=== PATIENT | male | born 1975 | race Caucasian/White ===

== ENCOUNTER → 2020-01-23 14:58 | Outpatient (CLI) | payer OTHER, SELFPAY ==
--- NOTE | 2020-01-23 15:05 | US_ITS ---
PROCEDURE: US THYROID CLINICAL INDICATION: ABN THYROID BLOOD TEST,GLOBUS SENSATION COMPARISON: No exams were available for comparison FINDINGS: The right lobe is 4.8 x 1.7 x 1.9 cm. Left lobe is 4.7 x 1.7 x 1.8 cm. The isthmus is 3 mm. There is heterogeneous echogenicity bilaterally. There are areas of questionable nodularity but no suspicious dominant nodules evident. There is a 6 x 3 mm slightly hypoechoic nodule in the upper pole on the left. IMPRESSION: Mildly prominent thyroid gland. No suspicious dominant nodules are evident. There is a 6 mm hypoechoic nodule in the left which is nonspecific. Dictated by: Robert Ochoa MD 01/23/2020 18:16 Robert Ochoa MD in [place] 01/23/2020 18:16
== END ==
PROVIDERS: PCP Family Medicine; Visit Provider Family Medicine
DX: R09.89 Other specified symptoms and signs involving the circulatory and respiratory systems (principal); R79.89 Other specified abnormal findings of blood chemistry
CPT/HCPCS: 76536

== ENCOUNTER → 2021-01-01 16:23 | Outpatient (CLI) | payer OTHER, SELFPAY | PROVIDERS: Visit Provider Internal Medicine Gastroenterology | DX: Z01.812 Encounter for preprocedural laboratory examination (principal); Z11.52 Encounter for screening for COVID-19; Z12.11 Encounter for screening for malignant neoplasm of colon | CPT/HCPCS: C9803; U0003; U0005 ==

== ENCOUNTER 2021-01-03 08:30 | Day surgery (SDC) | payer OTHER, SELFPAY ==
[2020-12-27 15:08] VITALS: BMI 30.5
[2021-01-03] VITALS (7 sets, daily range): BP systolic 84–143; BP diastolic 53–87; PULSE 59–70; RESP 16–18; TEMP 36.1–36.4; O2SAT 94–100
--- NOTE | 2021-01-03 10:00 | HMH.PROC ---
[facility] Procedure Note Procedure Note:: Colonoscopy Procedure Report: Colonoscopy with monopolar ablation/coagulation of internal hemorrhoids Endoscopist: Ramon Coronel II, MD Referring physician: Johnson Becerra MD Date of Procedure: January 03, 2021 Equipment: Olympus 190 variable stiffness pediatric colonoscope Sedation: MAC sedation Indication: Mr. Zamorano is a 46-year-old gentleman who is here for diagnostic colonoscopy. He did have bright red blood on the tissue and in the toilet bowl previously which resolved. He states that this occurred a while back. He reports no abdominal pain or rectal pain. He reports no change in his bowel habits, weight loss or family history of colon cancer. His referral states that he had a positive Cologuard but the patient does not remember having this done. Procedure: Prior to the procedure, a history and physical exam was performed, and patient's medications and allergies were reviewed. The risks, benefits and alternatives of the sedation and procedure were discussed with the patient. All questions were answered and informed consent was obtained. The patient was brought to the procedure room. Patient identification and proposed procedure were verified by the physician and the nurse. The patient was placed in a left lateral decubitus position and the scope was passed under direct vision. Throughout the procedure, the patient's blood pressure, pulse, and oxygen saturations were monitored continuously. The colonoscopy was accomplished without difficulty. The patient tolerated the procedure well. Findings: On digital rectal examination there was normal rectal tone. There were no external hemorrhoids. The prostate was mildly firm but symmetric without nodules. The colonoscope was introduced through the anal canal to the rectum and advanced to the cecum. The ileocecal valve and appendiceal orifice were identified. The scope was advanced a short distance into the ileum which appeared grossly normal. The scope was then withdrawn into the colon. The cecum, ascending and transverse colon and mucosa were grossly normal. There were mildly scattered diverticuli throughout the descending and sigmoid colon (LEFT colon). The rectum itself was normal. Upon retroflexion within the rectum there were grade 1-2 internal hemorrhoids. These hemorrhoids were ablated/coagulated using monopolar ablation to destruction. The preparation was excellent throughout with Ingalls Preparation Score of 9. The cecal time was 12 minutes. Impression: 1. Mild left-sided diverticulosis 2. Grade 1-2 internal hemorrhoids status post monopolar ablation/coagulation Plan: I would encourage bulk fiber supplementation on a long-term daily maintenance basis. The patient will not require surveillance colonoscopy again for 10 years by ACS guidelines.
--- NOTE | 2021-01-03 12:07 | HMH.ANESCL ---
[facility] Anesthesia Checklist - Patient Identification Patient Identification: Arm Band - Structural Data Admitted From: Home Planned Operative Procedure/s: Colonoscopy Consent for Planned Operative Procedure(s) Verified: Yes Verified Documents: Surgical Consent - NPO Status Verified Time NPO: 04:00 - Chart Verification Results Verified: None - Cardiovascular Assessment Heart Sounds: S1 & S2 Pulse Rhythm: Regular - Airway Assessment C-Spine Mobility Assessed: Yes TMJ Mobility Assessed: Yes Dentition: Good Dentition - Neurological Assessment Level of Consciousness: Awake, Alert, Appropriate - Anesthesia Plan Anesthesia Risk discussed: Yes ASA Class: III Anesthesia Type: General [facility] History I have reviewed the patient's past medical history: Yes Medical History: Denies:: Cancer, Diabetes Mellitus Type 1, Diabetes Mellitus Type 2, Internal Pacemaker, MRSA, Seizures *Have you ever received a pneumonia vaccine?: No *Have you received a flu vaccine this season?: No Anesthesia experience/problems:: none Other Surgeries: Yes: No Previous Surgery. No: Pacemaker Amputation: No Fractures: No - *Social History Last grade of school completed: Some college Smoking Status: Unknown if ever smoked Tobacco Type: smokeless tobacco # Packs/Day (cigarettes): 1 Alcohol Intake: never Substance Use Type: denies use *Occupational Status:: employed Housing: house Household Members: spouse, family *Travel in the last 8 weeks: None Family Hx:: No significant family history
== END 2021-01-03 10:55 | disposition home or self-care (01) ==
LOC: OUTP 08:32
PROVIDERS: PCP Family Medicine; Visit Provider Internal Medicine Gastroenterology
PROC: 0DJD8ZZ Inspection of Lower Intestinal Tract, Via Natural or Artificial Opening Endoscopic (ICD-10-PCS; CPT 45378; principal; 2021-01-03 09:30)
DX: K57.32 Diverticulitis of large intestine without perforation or abscess without bleeding (principal); K64.0 First degree hemorrhoids
CPT/HCPCS: 45378; 46930

== ENCOUNTER 2021-02-27 13:19 | Emergency (ER) | payer OTHER, SELFPAY ==
[2021-02-27 14:45] VITALS: BP 113/80; PULSE 78; RESP 19; TEMP 37; O2SAT 97; BMI 29.8
--- NOTE | 2021-02-27 14:58 | HMH.EDUTC ---
[facility] Disposition Clinical Impression: Rectal bleeding Disposition: Home, Self-Care Condition on Discharge: Good Instructions: DI for Rectal Bleeding Additional Instructions: Drink plenty of fluids. Eat a high fiber diet. Go to the ER for worsening bleeding. Follow up with your regular doctor about your symptoms. You still need more of a work up to try to see what's causing you to bleed. Your primary care physician would be the one to order these test or refer you. Follow up with the GI specialist that did your colonoscopy. GO TO THE ER FOR ANY WORSENING SYMPTOMS Referrals: Johnson Becerra [Primary Care Provider] - Time of Disposition: 16:46 Medical Decision Making - Medical Records Medical records reviewed: No: I reviewed the patient's medical records. - Clark Inquiry Pt receiving controlled substance: No Vital Signs: 02/27/21 14:45 02/27/21 15:37 02/27/21 16:25 Temperature 98.6 F 98.6 F Temperature Source Oral Pulse Rate 75 Pulse Rate [Left] 78 Respiratory Rate 19 18 Blood Pressure 117/85 Blood Pressure [Orthostatic Lying] 142/73 H Blood Pressure [Orthostatic Sitting] 118/76 Blood Pressure [Orthostatic Standing] 121/79 Blood Pressure [Right Arm] 113/80 Blood Pressure Mean [Right Arm] 91 02 Sat by Pulse Oximetry 97 - Lab Data Lab results reviewed: Yes: I reviewed the patient's lab results. Lab Results 02/27/21 15:33: WBC 7.4, RBC 5.02, Hgb 14.4, Hct 42.9, MCV 85.4, MCH 28.7, MCHC 33.6, RDW 13.7, Plt Count 260, MPV 8.3, Neut % (Auto) 56.4, Lymph % (Auto) 30.9, [place] % (Auto) 7.1, Eos % (Auto) 4.5, Baso % (Auto) 1.1, Neut # (Auto) 4.2, Lymph # (Auto) 2.3, [place] # (Auto) 0.5, Eos # (Auto) 0.3, Baso # (Auto) 0.1 02/27/21 15:33: PT 11.0, INR 0.97, APTT 29.1 02/27/21 15:33: Sodium 141, Potassium 3.7, Chloride 101, Carbon Dioxide 32 H, Anion Gap 11.7, BUN 12, Creatinine 0.70, Estimated Creat Clear 182, Estimated GFR 120, Est GFR ( Amer) 146, Glucose 116 H, Calcium 9.8, Total Bilirubin 0.6, AST 39, ALT 39, Alkaline Phosphatase 88, Total Protein 7.5, Albumin 4.6, Globulin 2.9, Albumin/Globulin Ratio 1.6 Result diagrams: 02/27/21 15:33 02/27/21 15:33 [facility] HPI - General Stated complaint: blood in stool Time Seen by Provider: 02/27/21 14:58 Mode of Arrival: Ambulatory Source of Information: Patient Limitations: No Limitations Description of Symptoms (Recalled from Triage Doc. by RN): PT STATES HE HAS HAD BRIGHT RED BLOOD IN HIS STOOL FOR 24 HRS. PT HAS A HX OF HEMMORHOIDS. HEENT Symptoms (Recalled from RN notes): No Resp Symptoms (Recalled from RN notes): No Skin Symptoms (Recalled from RN notes): No MS Symptoms (Recalled from RN notes): No Functional Status (Recalled from RN notes): NA - History of Present Illness Provider Complaint: He states that for the past several days he has been having bright red bleeding with bowel movements. He has had hemorrhoids in the past, but they were cauterized when he had a colonoscopy done. - Related Data Home Medications Medication Instructions Recorded Confirmed Febuxostat [Uloric 40mg Tab] 40 mg PO DAILY 12/27/20 01/03/21 Allergies Allergy/AdvReac Type Severity Reaction Status Date / Time Penicillins Allergy Verified 01/03/21 08:43 - Worker's Comp Is this a Worker's Comp case?: No [facility] History - Hepatitis A Screen Drug use history?: No High risk sexual behaviors?: No History of sexually transmitted infection?: No Currently employed?: No Childcare worker?: No Do you have indoor plumbing?: Yes Do you have electricity?: Yes Attestation statement:: This patient has been screened for Hepatitis A risk factors. I have reviewed the patient's past medical history: Yes Medical History: Denies:: Cancer, Diabetes Mellitus Type 1, Diabetes Mellitus Type 2, Internal Pacemaker, MRSA, Seizures Other Surgeries: Yes: No Previous Surgery. No: Pacemaker Amputation: No Fractures: No - Social History
[2021-02-27 15:37] VITALS: BP 118/76; BP 121/79; BP 142/73
[2021-02-27 15:51] LABS: Basophils # 0.1 K/mm3 (0-0.2); Basophils % 1.1 % (0.1-2.0); Chloride 101 mmol/L (98-107); Eosinophils # 0.3 K/mm3 (0.0-0.4); Eosinophils % 4.5 % (0.1-12.0); Hematocrit 42.9 % (42.0-52.0); Hemoglobin 14.4 g/dL (14.1-18.0); Lymphocytes # 2.3 K/mm3 (0.7-4.5); Lymphocytes % 30.9 % (10-50); Mean Corpuscular HGB Conc 33.6 g/dL (31.8-35.4); Mean Corpuscular Hemoglobin 28.7 pg (27.0-31.2); Mean Corpuscular Volume 85.4 fl (80-94); Mean Platelet Volume 8.3 fl (7.4-10.4); Monocytes # 0.5 K/mm3 (0.1-1.0); Monocytes % 7.1 % (1.7-9.3); Neutrophils # 4.2 K/mm3 (1.8-7.8); Neutrophils % 56.4 % (37.0-80.0); Platelet Count 260 K/mm3 (142-424); Potassium 3.7 mmoL/L (3.5-5.1); Red Blood Count 5.02 M/mm3 (4.60-6.20); Red Cell Distribution Width 13.7 % (11.5-17.5); Sodium 141 mmol/L (136-145); White Blood Count 7.4 K/mm3 (4.8-10.8)
[2021-02-27 15:54] LABS: Alanine Aminotransferase 39 U/L (12-78); Albumin Level 4.6 g/dl (3.5-5.0); Albumin/Globulin Ratio 1.6 (1.1-1.8); Alkaline Phosphatase 88 U/L (38-126); Anion Gap 11.7 mEq/L (5-15); Aspartate Amino Transferase 39 U/L (17-59); Bilirubin,Total 0.6 mg/dl (0.2-1.3); Blood Urea Nitrogen 12 mg/dl (9-20); Carbon Dioxide 32 mmol/L (22.0-30.0); Creatinine Clearance Estimated 182 mL/min (50-200); Estimated Glomerular Filt Rate 120 ml/min (>60); GFR (African American) 146 ML/MIN (>60); Globulin 2.9 g/dL (1.3-3.2); Total Protein,Serum 7.5 g/dl (6.3-8.2)
[2021-02-27 15:55] LABS: Calcium 9.8 mg/dl (8.4-10.2); Glucose 116 mg/dl (74-100)
[2021-02-27 15:57] LABS: Activated Partial Thrombo Time 29.1 seconds (22.8-30.6); INR 0.97 (0.9-1.1)
[2021-02-27 16:25] VITALS: BP 117/85; PULSE 75; RESP 18; TEMP 37
== END 2021-02-27 16:59 | disposition home or self-care (01) ==
PROVIDERS: Emergency Provider Nurse Practitioner Family; PCP Family Medicine
DX: K62.5 Hemorrhage of anus and rectum (principal); Z88.0 Allergy status to penicillin
CPT/HCPCS: 80053; 85025; 85610; 85730; 99203; G0463